=== PATIENT | male | born 1995 | race African-American/Black ===

== ENCOUNTER 2017-08-29 12:41 | Emergency (ER) | payer OTHER ==
[~2017-08-29] VITALS: Ht 193 cm; Wt 83.0 kg
[~2017-08-29 12:41] MED LIST: ALBUTEROL SULF8.5 GM INH; BENADRYL A12.5 MG/5 ORAL; NKM
[2017-08-29 12:58] VITALS: BP 130/75
--- NOTE | 2017-08-29 13:46 | Emergency Room Report ---
History of Present Illness General Chief Complaint: Upper Respiratory Illness Source: Patient Present Illness HPI 21yo M complaints of subjective fever, low-grade fro nonproductive cough, rhinorrhea, as well as mild myalgias. denies shortness of breath Denies chest pain, n/v, diarrhea, complaints Allergies: Coded Allergies: No Known Allergies (Unverified , 06/23/13) Patient History Past Medical History: see triage record, asthma Reviewed Nursing Documentation: PMH: Agreed, PSxH: Agreed Nursing Documentation-PMH Past Medical History: No History, Except For Hx Asthma: Yes Review of Systems All Other Systems: negative except mentioned in HPI Physical Exam Vital Signs Date Time Temp Pulse Resp B/P (MAP) Pulse Ox O2 Delivery O2 Flow Rate FiO2 08/29/17 12:49 98.8 81 18 130/75 99 Room Air Sp02 EP Interpretation: reviewed, normal General Appearance: no apparent distress, alert, non-toxic Head: normocephalic Eyes: bilateral eye normal inspection, bilateral eye PERRL, bilateral eye EOMI ENT: normal ENT inspection, hearing grossly normal, normal pharynx, no angioedema, normal voice, moist mucus membranes Neck: normal inspection, full range of motion, supple, supple/symm/no masses Respiratory: chest non-tender, lungs clear, normal breath sounds, chest symmetrical, palpation of chest normal Cardiovascular #1: normal peripheral pulses, regular rate, rhythm Cardiovascular #2: 2+ radial (R), 2+ radial (L) Gastrointestinal: normal inspection, non tender, soft, no mass, no guarding, no rebound Rectal: deferred Genitourinary: normal inspection, no CVA tenderness Musculoskeletal: back normal, gait/station normal, normal range of motion, non- tender, no calf tenderness Neurologic: alert, responsive, 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, motor strength/tone normal, sensory intact, speech normal Psychiatric: judgement/insight normal, memory normal, mood/affect normal, no suicidal/homicidal ideation Skin: normal color, no rash, warm/dry, normal turgor Lymphatic: no adenopathy Medical Decision Making Diagnostic Impression: Primary Impression: Influenza ER Course Patient with clinical flu, will give tamiflu as patien thas asthma and 2 days of symptoms, so will dc with tamiflu, Last Vital Signs Date Time Temp Pulse Resp B/P (MAP) Pulse Ox O2 Delivery O2 Flow Rate FiO2 1/26/18 13:14 81 18 Room Air 08/29/17 12:58 98.8 130/75 99 Disposition: HOME, SELF-CARE Condition: Stable Referrals: [facility],REFERRING (PCP) BUSHRA WANG M.D Aug 29, 2017 13:46
[2017-08-29] MEDS ORDERED: TAMIFLU75 MG ORAL (13:47)
[2017-08-29 14:05] VITALS: BP 130/78
[2017-08-29] MEDS ORDERED: IBUPROFEN600 MG ORAL (14:17)
== END 2017-08-29 14:05 | disposition home or self-care (01) ==
LOC: EMR 12:59
DX: J11.1 Influenza due to unidentified influenza virus with other respiratory manifestations (principal); J45.909 Unspecified asthma, uncomplicated
CPT/HCPCS: 99282